=== PATIENT | female | born 1940 | race Caucasian/White ===

== ENCOUNTER 2017-03-02 14:20 | Emergency (ER) | payer MEDICARE | END 2017-03-02 17:10 | disposition home or self-care (01) | LOC: D.ER 14:20 | DX: S16.1XXA Strain of muscle, fascia and tendon at neck level, initial encounter (principal); W19.XXXA Unspecified fall, initial encounter; Y93.89 Activity, other specified; Y92.019 Unspecified place in single-family (private) house as the place of occurrence of the external cause; S29.012A Strain of muscle and tendon of back wall of thorax, initial encounter; M54.2 Cervicalgia; R51 Headache; M25.562 Pain in left knee; M25.561 Pain in right knee ==